=== PATIENT | female | born 1940 | race Caucasian/White ===

== ENCOUNTER 2020-03-13 10:58 | Outpatient (CLI) | payer OTHER, SELFPAY ==
--- NOTE | ~2020-03-13 | DEXA_ITS ---
Bone Density Report Name: Karis Soto Age: 79 Sex: Female Ethnicity: White Date of : 1940 Indication: osteopenia; height loss; cancer; Referring Provider: ARIANA MONROY Study: Bone densitometry was performed. Exam Date: March 13, 2020 Accession number: [id number] Bone Density: Region BMD T-score Z-score Classification AP Spine (L1, L3, L4) 0.899 -1.4 1.4 Osteopenia Femoral Neck (Left) 0.644 -1.8 0.5 Osteopenia Total Hip (Left) 0.763 -1.5 0.7 Osteopenia Total Hip Bilateral Avg 0.769 -1.5 0.8 Osteopenia Femoral Neck (Right) 0.677 -1.6 0.8 Osteopenia Total Hip (Right) 0.774 -1.4 0.8 Osteopenia World Health Organization criteria for BMD impression classify patients as: Normal (T-score at or above -1.0), Osteopenia (T-score between -1.0 and -2.5), or Osteoporosis (T-score at or below -2.5). 10-year Fracture Risk(1): Major Osteoporotic Fracture 15% Hip Fracture 4.3% Reported Risk Factors: [place] (), Neck BMD=0.644, BMI=24.3 (1) FRAX(R) Version 3.08. Fracture probability calculated for an untreated patient. Fracture probability may be lower if the patient has received treatment. Previous Exams: Region Exam Age BMD T-score BMD Change BMD Change Date g/cm2 vs Baseline vs Previous AP Spine(L1, L3, L4) 03/13/2020 79 0.899 -1.4 -0.048(-5.1%)* -0.048(-5.1%)* 09/14/2016 76 0.947 -1.0 Total Hip(Left) 03/13/2020 79 0.763 -1.5 -0.009(-1.1%) -0.009(-1.1%) 09/14/2016 76 0.772 -1.4 Total Hip(Right) 03/13/2020 79 0.774 -1.4 -0.037(-4.6%)* -0.037(-4.6%)* 09/14/2016 76 0.811 -1.1 *Denotes significance at 95% confidence level, LSC for AP Spine = 0.022 g/cm2, LSC for Total Hip = 0.027 g/cm2 Clinical Information Provided by Patient: Has the following medical conditions: Cancer Patient maximum height was 69 Menopause Age: 50 Onset of menses at age 13 Number of children 3 Impression: The patient has low bone mass, based on the Left Femoral Neck T-score. The patient has an estimated ten-year risk of hip fracture of 4.3% and an estimated ten-year risk of major fracture of 15%, based on the WHO FRAX algorithm. The BMD for the AP Spine(L1, L3, L4) decreased, changing by -5.1% since the last DXA exam. The BMD for the Total Hip(Right) decreased, changing by -4.6% since the last DXA exam. Discussion: BONE DENSITY IS LOW AT ONE OR MORE SKELETAL SITES. THE PATIENT'S BMD AND CLINICAL RISK FACTORS CONTRIBUTE TO THIS PATIE
== END 2020-03-13 10:59 | disposition home or self-care (01) ==
LOC: ANHIMG 11:02
PROVIDERS: PCP Internal Medicine; Visit Provider Internal Medicine
DX: M85.88 Other specified disorders of bone density and structure, other site (principal); M85.852 Other specified disorders of bone density and structure, left thigh; M85.851 Other specified disorders of bone density and structure, right thigh
CPT/HCPCS: 77080

== ENCOUNTER 2022-09-23 22:10 | Observation (INO) | payer OTHER, SELFPAY ==
[2022-09-23] VITALS (14 sets, daily range): BP systolic 126–172; BP diastolic 78–110; PULSE 70–190; RESP 14–27; O2SAT 94–99
--- NOTE | ~2022-09-23 | XR_ITS ---
EXAMINATION: XR chest 1V portable INDICATION: Supraventricular tachycardia TECHNIQUE: Portable AP chest at 1056 hours COMPARISON: None available FINDINGS: There is symmetric scarring of the lung apices. No pleural effusion or pneumothorax. Minima l airspace opacities are present at the left costophrenic angle. The heart size is normal for techniq ue. IMPRESSION: 1. Minimal left basilar airspace opacities, likely atelectasis versus epicardial fat pad. Reviewed, dictated and finalized at location A. NETWORK ENGINEER IMPRESSION: 1. Minimal left basilar airspace opacities, likely atelectasis versus epicardia l fat pad.
--- NOTE | 2022-09-23 22:11 | ECG_ITS ---
Measurements Intervals [place] Rate: 112 P: MO: 0 QRS: -32 QRSD: 83 T: 58 QT: 319 QTc: 437 Interpretive Statements ATRIAL FLUTTER/FIBRILLATION WITH RAPID VENTRICULAR RESPONSE MARKED LEFT AXIS DEVIATION [QRS AXIS < -30] POSSIBLE RIGHT VENTRICULAR CONDUCTION DELAY [RSR (QR) IN V1/V2] ST DEPRESSION, CONSIDER INFEROLATERAL ISCHEMIA ABNORMAL ECG NO PREVIOUS ECG AVAILABLE FOR COMPARISON Electronically Signed On 09-24-2022 11:30:43 PHOTO MASK CLEANER by Frank Graves M.D.
[2022-09-23] MEDS: ADENOSINE IV SOLN 6 MG/2 ML VIAL IV PUSH (22:34)
[2022-09-23] MEDS: METOPROLOL TARTRATE INJ 5 MG/5 ML VIAL IV PUSH (22:35)
--- NOTE | 2022-09-23 22:36 | ECG_ITS ---
Measurements Intervals [place] Rate: 173 P: MS: 0 QRS: -36 QRSD: 194 T: 0 QT: 260 QTc: 442 Interpretive Statements SUPRAVENTRICULAR TACHYCARDIA DIFFUSE ST-T ABNORMALITY CONSIDER SUB ENDOMYOCARDIAL ISCHEMIA INTRAVENTRICULAR CONDUCTION DELAY ABNORMAL ECG COMPARED TO ECG 09/23/2022 22:17:44 INTRAVENTRICULAR CONDUCTION DELAY NOW PRESENT Electronically Signed On 09-25-2022 16:12:05 MANAGER BABY by Eliud Jackson M.D.
--- NOTE | 2022-09-23 22:37 | ECG_ITS ---
Measurements Intervals [place] Rate: 112 P: 114 MS: 161 QRS: -25 QRSD: 84 T: 62 QT: 308 QTc: 422 Interpretive Statements SINUS TACHYCARDIA POSSIBLE RIGHT VENTRICULAR CONDUCTION DELAY VOLTAGE CRITERIA FOR LVH ST DEPRESSION, CONSIDER SUBENDOCARDIAL INJURY ABNORMAL ECG COMPARED TO ECG 09/23/2022 22:36:31 SINUS TACHYCARDIA HAS REPLACED SUPRAVENTRICULAR TACHYCARDIA Electronically Signed On 09-25-2022 16:12:58 [employer] TECHNICAL MANAGER by Eliud Jackson M.D.
[2022-09-23] MEDS: SODIUM CHLORIDE 0.9% IV 1,000 ML 999 ML IV CONT (22:39)
--- NOTE | 2022-09-23 22:55 | ECG_ITS ---
Measurements Intervals [place] Rate: 89 P: ND: 0 QRS: -29 QRSD: 86 T: 41 QT: 368 QTc: 449 Interpretive Statements PROBABLE ATRIAL FLUTTER BORDERLINE LEFT AXIS DEVIATION [QRS AXIS < -20] POSSIBLE RIGHT VENTRICULAR CONDUCTION DELAY [RSR (QR) IN V1/V2] ABNORMAL RHYTHM ECG COMPARED TO ECG 09/23/2022 22:17:44 NO SIGNIFICANT CHANGES Electronically Signed On 09-24-2022 11:31:17 OLD COIN DEALER by Frank Graves M.D.
--- NOTE | 2022-09-23 22:56 | ED.GENADULT ---
HPI - General Adult General Chief complaint: Arrhythmia/Palpitations Stated complaint: tachycardia Time Seen by Provider: 09/23/22 22:20 History of Present Illness HPI narrative: 82-year-old female with history of SVT presenting to the emergency department for evaluation of increased episodes of rapid heart rate and heart palpitations. Patient states prior to arrival that she was having some chest discomfort which she described as an indigestion type feeling. Patient denies any prior history of coronary artery disease. Due to these increased symptoms patient was scheduled to have follow-up with Dr. Sierra patient states tonight she was having some lightheaded and dizziness with the episodes of heart palpitation. Patient does have a prior history of syncope, DJD hypertension. Related Data Home Medications Medication Instructions Recorded Confirmed lisinopril 20 mg tablet 20 mg PO DAILY 09/24/22 09/24/22 Allergies Allergy/AdvReac Type Severity Reaction Status Date / Time No Known Allergies Allergy Verified 03/23/20 13:54 Review of Systems Review of Systems: CONSTITUTIONAL: Denies fever, chills, or sweats. EYES: Denies visual changes, redness, or discharge. ENT: Denies rhinorrhea, congestion, sore throat, or otalgia. CARDIOVASCULAR: See HPI RESPIRATORY: Denies cough or dyspnea. GASTROINTESTINAL: Denies abdominal pain, nausea, vomiting, or diarrhea. GENITOURINARY: Denies dysuria or hematuria. SKIN: Denies rash or itching. MUSCULOSKELETAL: Denies back pain, joint pain, or myalgia. NEUROLOGIC: Denies headache, numbness, or weakness. P [facility] Family History Family History (Updated 09/24/22 @ 02:02 by Meera Cheatham RN) Father Enlarged heart Sibling Alcoholism Social History Social History Smoking status: Never smoker Second hand tobacco smoke exposure: Yes Alcohol intake: current Drinks per week: 1 Substance use: never Other substance usage details: Drinks maybe 2 glasses of wine a month Lack of Transportation: No Lack of Food: Never True Current Housing: I Have Housing Concerned About Future Housing: No Difficulty Paying Gas/Electric Bills: No Difficulty Paying for Meds: No Currently Unemployed: No Education: Decline to Answer Difficulty w/ Childcare or Family Care: No Spiritual care concerns: No Exam Narrative: APPEARANCE: Uncomfortable appearing with the rapid heart rate well-appearing 1 return to normal sinus rhythm HEAD: normocephalic, atraumatic. EYES: PERRLA/EOMI, conjunctivae clear. NOSE: Normal no drainage NECK: Supple. No adenopathy, no masses. RESPIRATORY: Airway patent, respirations nonlabored. Clear to auscultation bilaterally, no rales, rhonchi, wheezing. CARDIOVASCULAR: Tachycardia ABDOMINAL: Soft, nontender, nondistended, normal bowel sounds MUSCULOSKELETAL: Moves all extremities. Strength/ROM intact, No edema, No calf tenderness. NEURO: Alert. Cranial nerves II through XII intact. SKIN: Warm, dry. Normal Color Course Course Emergency Course: Upon arrival to the emergency department patient's initial EKG did show evidence of atrial fibrillation. On initial evaluation patient had converted to SVT with a heart rate in the 180s. Attempted modified Valsalva x2 and patient was not able to convert back to normal sinus rhythm. Patient was converted using 6 mg of IV Adenocard and patient's heart rate went from 180 down to 115 for a few minutes and then she returned back to the SVT with a heart rate of 170s. Patient was treated with 5 mg of IV Adenocard and patient's heart rate did convert back to a sinus tachycardia and then back to normal sinus rhythm. With the conversion back to normal sinus rhythm patient states that she has no chest pain no chest pressure and no symptoms of indigestion. Patient denies any complaints once her heart rate returned to a rate of 80. With the significant ST changes that were present on her EKG of the heart rate in the 180s and t
[2022-09-23] MEDS: METOPROLOL TARTRATE 25 MG TABLET PO (23:00)
[2022-09-23 23:01] LABS: Basophils Absolute Auto 0.1 K/mm3 (0.0-0.1); Basophils Percent Auto 0.6 % (0.2-1.2); Eosinophils Absolute Auto 0.1 K/mm3 (0-0.3); Eosinophils Percent Auto 0.7 % (0-4.4); Hematocrit 44.4 % (37.0-47.0); Hemoglobin 15.1 g/dL (12.0-15.0); Immature Granulocyte Absolute 0.04 K/mm3 (0.00-0.031); Immature Granulocyte Percent A 0.4 % (0-0.5); Lymphocytes Absolute Auto 1.88 K/mm3 (0.9-3.2); Lymphocytes Percent Auto 18.3 % (18.3-44.2); Mean Corpuscular Hemoglobin 31.2 pg (26-34); Mean Corpuscular Volume 91.7 fl (80-100); Mean Platelet Volume 11.4 fl (7.4-10.4); Monocytes Absolute Auto 1.1 K/mm3 (0.1-0.6); Neutrophils Absolute Auto 7.1 K/mm3 (1.3-6.7); Platelet Count Result 259 k/mm3 (150-375); Red Blood Count 4.84 M/mm3 (4.2-5.4); Red Cell Distribution Width 12.4 % (11.5-14.5); White Blood Count 10.3 K/mm3 (4.5-10.0)
[2022-09-23 23:14] LABS: Prothrombin Time 12.9 Seconds (11.1-14.7)
[2022-09-23 23:15] LABS: Partial Thromboplastin Time 37.3 SECONDS (22.3-36.8)
[2022-09-23 23:23] LABS: Alanine Aminotransferase 26 U/L (6-35); Albumin Level 4.1 g/dL (3.5-5.1); Alkaline Phosphatase 132 U/L (38-126); Anion Gap 11 mmol/L (8-16); Aspartate Amino Transferase 34 U/L (14-36); Bilirubin,Total 0.9 mg/dL (0.2-1.3); Blood Urea Nitrogen 14 mg/dL (7-17); Calcium 9.2 mg/dL (8.4-10.2); Carbon Dioxide 23 mmol/L (22-30); Chloride 107 mmol/L (98-107); Estimated CRCL calculation 54 ml/min; Estimated Glomerular Filt Rate > 60; Glucose 173 mg/dL (65-110); Potassium 2.9 mmol/L (3.4-5.0); Sodium 141 mmol/L (137-145)
[2022-09-23 23:34] LABS: NT Pro B Type Natriuretic Pept 1660 pg/mL (19.9-100); Troponin I 0.024 ng/mL (0.000-0.034)
[2022-09-23 23:35] LABS: Influenza A QL RT-PCR Negative (Negative); Influenza B QL RT-PCR Negative (Negative); SARS-CoV-2 RNA PCR Negative
[2022-09-24] VITALS (24 sets, daily range): BP systolic 122–171; BP diastolic 58–122; PULSE 52–90; RESP 14–29; TEMP 36.1–36.7; O2SAT 95–100; BMI 25.4
[2022-09-24] MEDS: KCL 20 MEQ/SW 100 ML 100 ML 50 MEQ IVPB (00:13)
[2022-09-24] MEDS: POTASSIUM CHLORIDE 20 MEQ PACKET (FOR LIQUID) 40 MEQ PO (00:13)
[2022-09-24] MEDS: SODIUM CHLORIDE 0.9% IV 250 ML 999 ML (00:54)
[2022-09-24] MEDS: ONDANSETRON INJ 4 MG/2 ML VIAL IV PUSH (01:01)
--- NOTE | 2022-09-24 01:28 | PC.NURSE ---
This patient, Karis Soto, was admitted to IMU Room 203-01 at 0124. Patient/family oriented to hospital policies and general routines including ID bracelet, bed and alarms, visiting hours, pain management, procedures, bathroom and other care routines, personal items, smoking policy, room service/diet, and visiting hours. Information on how to activate the Rapid Response Team has been discussed. Patient/Family are encouraged to report perceived risks to care and to ask questions if they do not understand what they are told or what they should do.
[2022-09-24 05:12] LABS: Troponin I 0.064 ng/mL (0.000-0.034)
[2022-09-24 09:27] LABS: Appearance Urine Slightly Cloudy (Clear); Bilirubin Urine Negative (Negative); Blood Urine Negative (Negative); Color Urine Yellow (Yellow); Glucose Urine UA Negative (Negative); Ketones Urine Trace mg/dL (Negative); Leukocyte Esterase Ur 1+ LEU/UL (Negative); Nitrate Urine Negative (Negative); Protein Urine Negative (Negative); Specific Grav Ur 1.025 (1.001-1.035); pH Urine 5.5 (5.0-9.0)
[2022-09-24 09:32] LABS: Bacteria Urine Trace /hpf; Hyaline Casts Urine 20-29 /lpf; Mucus Urine Heavy /lpf; Squamous Epithelial Cell Urine Many /hpf (Few)
--- NOTE | 2022-09-24 09:36 | PM.IMHP ---
H&P: HPI History of Present Illness Date/Time: 09/23/22 23:50 Chief Complaint: Palpitations Narrative: 82-year-old female with a past medical history of SVT, essential hypertension and osteopenia who presented to the ER with palpitations and indigestion. This was also accompanied by some dizziness and lightheadedness. She had evidently been having increased symptoms similar to this in the past. The patient had a compliance monitor placed in 2018 that was initially interpreted as having some paroxysmal AFib. However after further evaluation or repeat evaluation by another provider who was evidently felt that these episodes were not AFib in were more SVT. At 1 point the patient was on anticoagulation with Eliquis and had prescriptions for metoprolol and Cardizem. But this was back in 2019. She states that recently her blood pressure medicine that started within a letter M was discontinued by her primary care physician and she was switched to lisinopril. She was started on 10 mg of lisinopril daily but it was increased to 20 mg within the last week or 2. Patient had prior echocardiogram in December of 2018 that demonstrated normal ejection fraction of 65-70% and grade 1 diastolic dysfunction. She denies any lower extremity swelling orthopnea or dyspnea on exertion. Patient initially when the patient arrived to the ER it was thought that she may be in AFib. However instead the patient was in SVT with heart rate of 180. Modified Valsalva maneuver was attempted x2 but failed the patient was converted using 6 mg of IV adenosine and her heart rate went down to 115. She returned back into SVT with heart rate of 170s and gave 1 dose of IV metoprolol. And she converted back to sinus rhythm. With conversion back to sinus rhythm the patient no longer had any complaints of chest pain. Her rate was 80. The patient did have ST changes when her heart rate was elevated but these changes resolved when patient's rhythm converted. Her initial troponin was negative but did become elevated likely due to demand ischemia from tachyarrhythmia. The patient did receive 1 dose of p.o. metoprolol 25 mg in the ER. Cardiology did not recommend heparin drip in LEs patient had significant elevation in her troponin above 0.5. The patient's troponin peaked at 0.7 it is already trending down with her 3rd set. Source of information is patient and her daughter was at bedside. The patient provided permission for me discuss her case with her daughter. I discussed the patient's case was discussed with ER admission and Cardiology the following morning. Review of Systems Review of Systems: 12 systems were reviewed with pertinent positives and negatives per HPI. Except as documented in the HPI, all other systems were reviewed and are negative. [facility] Past Medical History Medical History (Updated 09/24/22 @ 10:03 by Cary Campa DO) Cancer of right breast Treated with localized resection and radiation therapy Hypovitaminosis D Osteopenia Surgical History Surgical History (Updated 09/24/22 @ 09:56 by Cary Campa DO) History of lumpectomy of right breast (2009) Family History Family History Father Enlarged heart Sibling Alcoholism Social History Social History (Updated 09/24/22 @ 10:00 by Cary Campa DO) Social History: She has been since 2007. She raised 3 children. Her middle child is at bedside. 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 Code status: Patient states that she would want to be cardioverted if she was in a unstable cardiac arrhythmia but would not want her heart to be restarted if she actually went into cardiac arrest. She would not want to be intubated or placed on a ventilator. She states that her was on a ventilator for 4 weeks prior to his and she would not want to experience that. Smoking status: Former smoker Second hand tobacco
[2022-09-24 10:03] LABS: Add Urine Microscopic? YES
--- NOTE | 2022-09-24 10:10 | PM.CNCAR ---
Assessment and Plan Assessment and plan (1) Narrow complex tachycardia: Code(s): I47.1 - Supraventricular tachycardia Status: Acute Assessment and Plan: This appears to be and atypical atrial flutter. Cannot completely exclude an atrial tachycardia. She does have a history of atrial flutter however and most likely scenario is that the recent stopping of her metoprolol has resulted in increased episodes of arrhythmia. Will resume lower dose metoprolol at 25 mg p.o. b.i.d.. Continue lisinopril because of blood pressure is high. Will check a 2D echocardiogram with Doppler. Will give a dose of enoxaparin 1 milligram/kilogram subQ x1 now. She does have a chads Vasc score of 4. Anticoagulation is recommended. She was briefly on Eliquis in the remote past. (2) Essential hypertension: Code(s): I10 - Essential (primary) hypertension Status: Acute Assessment and Plan: Elevated. Add metoprolol to lisinopril as detailed above (3) Acute hypokalemia: Code(s): E87.6 - Hypokalemia Status: Acute Assessment and Plan: Potassium is quite low. KCL Forty mEq p.o. x1 (4) Syncope: Code(s): R55 - Syncope and collapse Status: Acute Assessment and Plan: Workup in the past by Dr. Gooden was negative (5) Elevated troponin: Code(s): R77.8 - Other specified abnormalities of plasma proteins Status: Acute Assessment and Plan: Likely related to the tachycardia. Will continue to trend troponins and repeat a troponin now. Also check an EKG in a.m. History of Present Illness History of Present Illness Consult date/time: 09/24/22 10:10 Requesting physician: Thiago Bell MD Consult reason: Other (SVT) Reason For Visit: SVT Narrative: Date of service 09/24/2022 Requesting provider: Dr. Bell Reason for consultation: SVT History patient is an 82-year-old female who has a history of atrial flutter. She had seen Dr. Gooden in the remote past and was scheduled to see Dr. Sierra soon. She was recently taken off metoprolol for side effects reasons including lethargy. Since being taken off of metoprolol she has had increased episodes of palpitations. Yesterday she had an episode that lasted for about 20 minutes in which her heartbeat was strong and fast. She was a little lightheaded with it as well. She did not pass out. Because of the ongoing symptoms and more frequent symptoms over the past 3 weeks or so and since yesterday's symptoms were more prolonged she decided come to the hospital for further workup and evaluation. She was found to be and what was thought to be SVT. In my opinion it is in atypical atrial flutter. Regardless she was given metoprolol and her symptoms did improve and her heart rate slowed. Troponins have turned slightly positive. She denies any chest pain. She has no syncope, paroxysmal nocturnal dyspnea, orthopnea, edema, orthopnea. Review of Systems Review of Systems: All systems reviewed & are unremarkable except as noted in HPI and below Constitutional: Constitutional: Denies chills Eyes: Eyes: Denies blurry vision ENT: Reports Normal hearing present Cardiovascular: Cardiovascular: Denies chest pain and Reports palpitations Respiratory: Respiratory: Denies chest congestion and Denies cough Gastrointestinal: Gastrointestinal: Denies abdominal pain Genitourinary: Genitourinary: Denies hematuria Musculoskeletal: Musculoskeletal: Denies back pain Integumentary/Breasts: Skin/Breast: Denies erythema Neurologic: Denies Abnormal speech present Psychiatric: Psychiatric: Denies anxiety Endocrine: Endocrine: Denies excessive sweating Hematologic/Lymphatic: Hematologic/Lymphatic: Denies easy bleeding Allergic/Immunologic: Allergic/Immunologic: Denies lip swelling PMFSH Past Medical History Medical History Cancer of right breast Treated with localized
[2022-09-24 10:54] LABS: Anion Gap 3 mmol/L (8-16); Blood Urea Nitrogen 13 mg/dL (7-17); Calcium 8.6 mg/dL (8.4-10.2); Carbon Dioxide 27 mmol/L (22-30); Chloride 107 mmol/L (98-107); Estimated CRCL calculation 62 ml/min; Estimated Glomerular Filt Rate > 60; Glucose 88 mg/dL (65-110); Magnesium 1.9 mg/dL (1.6-2.3); Potassium 4.1 mmol/L (3.4-5.0); Sodium 137 mmol/L (137-145)
[2022-09-24 11:03] LABS: Troponin I 0.028 ng/mL (0.000-0.034)
[2022-09-24] MEDS: ENOXAPARIN 80 MG/0.8 ML SYRINGE SUB-Q (11:58)
--- NOTE | 2022-09-24 12:14 | ECG_ITS ---
Measurements Intervals [place] Rate: 60 P: 58 [place]: 239 QRS: -21 QRSD: 84 T: 46 QT: 441 QTc: 441 Interpretive Statements SINUS RHYTHM WITH FIRST DEGREE AV BLOCK BORDERLINE LEFT AXIS DEVIATION [QRS AXIS < -20] POSSIBLE RIGHT VENTRICULAR CONDUCTION DELAY [RSR (QR) IN V1/V2] COMPARED TO ECG 09/23/2022 23:04:02 SINUS RHYTHM HAS BEEN RESTORED Electronically Signed On 09-25-2022 11:50:37 TYPE PHOTOGRAPHY SUPERVISOR by Rizwan Young M.D.
--- NOTE | 2022-09-24 16:26 | PM.IMPN ---
Progress Note: A&P Assessment and Plan (1) Paroxysmal SVT (supraventricular tachycardia): Code(s): I47.1 - Supraventricular tachycardia Status: Acute (2) Essential hypertension: Code(s): I10 - Essential (primary) hypertension Status: Acute (3) Acute hypokalemia: Code(s): E87.6 - Hypokalemia Status: Acute Plan SVT s/p adenosine Continue metoprolol ECHO pending Cardiology History of Paroxysmal Afib Anticoagulation per cardiology cardiology on board Hypokalemia K 2.9, replaced Serum magnesium monitor Elevated troponin Likely from tachycardia normal now HTN Continue Lisinopril and metoprolol DVT prophylaxis on Sq [place] full dose Subjective Date/time seen: 09/24/22 16:26 Patient presented to the ER on account of lightheadedness with palpitations, has a history of Afib. Noted to be in SVT extinguished with Adenosine. ECHO pending, Cardiology following. Review of Systems Review of Systems: All systems reviewed & are unremarkable except as noted in HPI and below Exam Narrative: General: Alert and oriented, in no acute distress HEAD: normocephalic, atraumatic. EYES: PERRLA/EOMI, conjunctivae clear. NOSE: Normal no drainage NECK: Supple. No adenopathy, no masses. RESPIRATORY: Airway patent, respirations nonlabored. Clear to auscultation bilaterally, no rales, rhonchi, wheezing. CARDIOVASCULAR: Tachycardia ABDOMINAL: Soft, nontender, nondistended, normal bowel sounds MUSCULOSKELETAL: Moves all extremities. Strength/ROM intact, No edema, No calf tenderness. NEURO: Alert. Cranial nerves II through XII intact. SKIN: Warm, dry. Normal Color Const: Other: No acute distress, well-developed well-nourished, appears younger than stated age HENMT: Other: Mucous membranes are moist, no oral pharyngeal erythema, head is normocephalic atraumatic Eyes: Other: Pupils are equal and reactive, no scleral icterus, no conjunctival pallor Neck: Other: No JVD, no lymphadenopathy, trachea midline Resp: Other: Clear to auscultation bilaterally, no increased work of breathing Cardio: Other: Regular rate, regular rhythm, 2+ bilateral radial pedal pulses GI: Other: Soft, nontender, nondistended, positive bowel sounds Back/Spine/Pelvis: Other: Mild kyphosis thoracic spine Skin: Other: Mild pallor, non jaundice Neuro: Other: Alert oriented, speech is clear, no facial asymmetry, no localizing neurologic deficits noted on limited exam Extrem: Other: Chronic deformity of the right index finger with abnormal nail bed and thickened tissue due to an injury with a vacuum distributor cleaner over 40 years ago., no clubbing cyanosis or edema Psych: Other: Appropriate mood and affect, pleasant and cooperative, judgment and insight intact Objective Data Vital Signs Vital Signs: Vital Signs - 24 hr 09/23/22 22:19 09/23/22 22:23 09/23/22 22:35 Temperature Pulse Rate 111 H 190 H 178 H Respiratory Rate 16 21 H Blood Pressure 172/89 H 172/89 H Pulse Oximetry 99 98 Oxygen Delivery Room Air 09/23/22 22:40 09/23/22 22:41 09/23/22 23:00 Temperature Pulse Rate 105 H 106 H 83 Respiratory Rate 17 Blood Pressure 133/110 H Pulse Oximetry 98 Oxygen Delivery 09/23/22 22:41 09/23/22 22:51 09/23/22 23:01 Temperature Pulse Rate 109 H 88 86 Respiratory Rate 14 18 22 H Blood Pressure 133/100 H 145/79 H 150/89 H Pulse Oximetry 98 98 94 Oxygen Delivery 09/23/22 23:11 09/23/22 23:21 09/23/22 23:59 Temperature Pulse Rate 79 77 70 Respiratory Rate 16 17 Blood Pressure 139/84 142/86 H Pulse Oximetry 94 95 Oxygen Delivery 09/23/22 23:31 09/23/22 23:41 09/23/22 23:51 Temperature Pulse Rate 78 81 82 Respiratory Rate 18 17 27 H Blood Pressure 140/78 152/87 H 126/88 Pulse Oximetry 97 96 96 Oxygen Delivery 09/24/22 00:01 09/24/22 00:11 09/24/22 00:21 Temperature Pulse Rate 77 78 80 Resp
[2022-09-24] MEDS: METOPROLOL TARTRATE 25 MG TABLET PO (20:01)
[2022-09-25] VITALS (18 sets, daily range): BP systolic 142–156; BP diastolic 60–81; PULSE 49–159; RESP 14–18; TEMP 36–36.9; O2SAT 96–99
--- NOTE | 2022-09-25 | ECHO_ITS ---
Patient Info Name: Karis Soto Age: 82 years : 1940 Gender: Female Ht: 69 in Wt: 181 lbs BSA: 2.01 m2 BP: 145 / 60 mmHg Heart Rhythm: Sinus Rhythm Exam Date: 09/25/2022 9:15 AM Exam Location: [facility] Patient Status: Inpatient Admit Date: 09/23/2022 Staff Ordering Physician: Thiago Bell MD Aerotriangulation Specialist: Edgar Roberts, RITA, RT Attending Provider: Cary Campa DO Referring Physician: Ray BHAGAT; Exam Type: CA echo doppler color flow Study Info Indications I50.9 - Heart failure, unspecified - SVT with ST changes Complete two-dimensional, color flow and Doppler transthoracic echocardiogram is performed. Summary 1. Complete two-dimensional, color flow and Doppler transthoracic echocardiogram is performed. 2. Left ventricular chamber dimension is normal. 3. Left ventricular systolic function is hyperdynamic, estimated at >70%. 4. There is mildly increased left ventricular wall thickness. 5. The left ventricular diastolic function is grade II diastolic dysfunction. 6. There is trace mitral valve regurgitation. 7. There is mild tricuspid valve regurgitation. 8. Moderate pulmonary hypertension, estimated pulmonary arterial systolic pressure is 51 mmHg. Left Ventricle Left ventricular chamber dimension is normal. Left ventricular systolic function is hyperdynamic, estimated at >70%. There is mildly increased left ventricular wall thickness. The left ventricular diastolic function is grade II diastolic dysfunction. Right Ventricle Right ventricular chamber dimension is normal. Right ventricular systolic function is normal. Left Atria Left atrial chamber dimension is normal. Right Atria Right atrial chamber dimension is mildly enlarged. Aortic Valve The aortic valve is trileaflet. There is mild aortic valve sclerosis. There is no aortic valve stenosis. There is trace aortic valve regurgitation. Pulmonic Valve The pulmonic valve is not well visualized. There is mild pulmonic regurgitation. Mitral Valve The mitral valve has normal leaflets. There is trace mitral valve regurgitation. The mitral valve annulus is mildly calcified. Tricuspid Valve The tricuspid valve leaflets are normal. There is mild tricuspid valve regurgitation. Moderate pulmonary hypertension, estimated pulmonary arterial systolic pressure is 51 mmHg. Pericardium/Pleural The pericardium appears normal. There is trivial pericardial effusion. Inferior Vena Cava Normal inferior vena cava with >50% collapse upon inspiration consistent with normal right atrial pressure, 5 mmHg. Aorta The aortic root size at the sinus of Valsalva is normal. There is mild aortic atherosclerosis. Left Ventricular Outflow Tract Name Value Normal LVOT 2D LVOT Diameter 2.0 cm LVOT Doppler LVOT Peak Gradient 6 mmHg LVOT Mean Gradient 4 mmHg LVOT VTI 26 cm LVOT VTI/AV VTI Ratio 0.7 LVOT Stroke Volume 85 ml Mitral Valve
[2022-09-25 04:56] LABS: Basophils Absolute Auto 0.1 K/mm3 (0.0-0.1); Basophils Percent Auto 0.7 % (0.2-1.2); Eosinophils Absolute Auto 0.2 K/mm3 (0-0.3); Eosinophils Percent Auto 3.1 % (0-4.4); Hematocrit 38.4 % (37.0-47.0); Hemoglobin 12.8 g/dL (12.0-15.0); Immature Granulocyte Absolute 0.02 K/mm3 (0.00-0.031); Immature Granulocyte Percent A 0.3 % (0-0.5); Lymphocytes Absolute Auto 2.19 K/mm3 (0.9-3.2); Lymphocytes Percent Auto 32.8 % (18.3-44.2); Mean Corpuscular HGB Conc 33.3 g/dl (32-36); Mean Corpuscular Hemoglobin 30.9 pg (26-34); Mean Corpuscular Volume 92.8 fl (80-100); Monocytes Absolute Auto 0.8 K/mm3 (0.1-0.6); Monocytes Percent Auto 11.2 % (2.6-8.5); Neutrophils Absolute Auto 3.5 K/mm3 (1.3-6.7); Neutrophils Percent Auto 51.9 % (45.5-73.1); Platelet Count Result 220 k/mm3 (150-375); Red Blood Count 4.14 M/mm3 (4.2-5.4); Red Cell Distribution Width 12.3 % (11.5-14.5); White Blood Count 6.7 K/mm3 (4.5-10.0)
[2022-09-25 05:08] LABS: Alanine Aminotransferase 19 U/L (6-35); Albumin Level 3.2 g/dL (3.5-5.1); Alkaline Phosphatase 86 U/L (38-126); Anion Gap 3 mmol/L (8-16); Aspartate Amino Transferase 24 U/L (14-36); Bilirubin,Total 0.7 mg/dL (0.2-1.3); Blood Urea Nitrogen 12 mg/dL (7-17); Calcium 8.2 mg/dL (8.4-10.2); Carbon Dioxide 27 mmol/L (22-30); Chloride 109 mmol/L (98-107); Estimated CRCL calculation 54 ml/min; Estimated Glomerular Filt Rate > 60; Glucose 83 mg/dL (65-110); Magnesium 1.9 mg/dL (1.6-2.3); Potassium 3.9 mmol/L (3.4-5.0); Sodium 139 mmol/L (137-145)
[2022-09-25] MEDS: lisinopriL 20 MG TABLET PO (08:38)
[2022-09-25] MEDS: METOPROLOL TARTRATE 25 MG TABLET PO ×2 (08:38→20:21)
--- NOTE | 2022-09-25 10:52 | PM.PNCARD ---
Progress Note: A&P Assessment and Plan (1) Narrow complex tachycardia: Code(s): I47.1 - Supraventricular tachycardia Status: Acute Assessment and Plan: Atypical atrial flutter vs. atrial tachycardia. She does have a history of atrial flutter however and most likely scenario is that the recent stopping of her metoprolol has resulted in increased episodes of arrhythmia. Continue metoprolol 25mg b.i.d. She does have a chads Vasc score of 4. Anticoagulation is recommended. She was briefly on Eliquis in the remote past. Will order 30 day tele monitor on discharge (2) Essential hypertension: Code(s): I10 - Essential (primary) hypertension Status: Acute Assessment and Plan: Elevated. Add metoprolol to lisinopril as detailed above (3) Acute hypokalemia: Code(s): E87.6 - Hypokalemia Status: Acute Assessment and Plan: Replaced. (4) Syncope: Code(s): R55 - Syncope and collapse Status: Acute Assessment and Plan: Workup in the past by Dr. Gooden was negative (5) Elevated troponin: Code(s): R77.8 - Other specified abnormalities of plasma proteins Status: Acute Assessment and Plan: Likely related to the tachycardia. Troponin trended down Subjective Date/time seen: 09/25/22 10:52 Follow up visit for atrial flutter Feeling well this morning. No further palpitations. In sinus rhythm/sinus bradycardia on telemetry review. Review of Systems Review of Systems: All systems reviewed & are unremarkable except as noted in HPI and below Constitutional: Constitutional: Denies chills and Denies excessive sweating Eyes: Eyes: Denies blurry vision ENT: Reports Normal hearing present and Denies lip swelling Cardiovascular: Cardiovascular: Denies chest pain and Reports palpitations Respiratory: Respiratory: Denies chest congestion and Denies cough Gastrointestinal: Gastrointestinal: Denies abdominal pain Genitourinary: Genitourinary: Denies hematuria Musculoskeletal: Musculoskeletal: Denies back pain Integumentary/Breasts: Skin/Breast: Denies erythema Neurologic: Reports Normal hearing present and Denies Abnormal speech present Psychiatric: Psychiatric: Denies anxiety Endocrine: Endocrine: Denies excessive sweating and Reports palpitations Hematologic/Lymphatic: Hematologic/Lymphatic: Denies easy bleeding Allergic/Immunologic: Allergic/Immunologic: Denies lip swelling Exam Narrative: Alert oriented appears stated age Const: General: comfortable and no acute distress HENMT: Face/Nose/Sinus: Normal nares present Eyes: General: appearance normal, both eyes and all related structures Sclera: sclerae normal Neck: Neck: supple Thyroid: abnormal thyroid Chest: Other: No reproducible chest wall pain to palpation Resp: Effort & Inspection: normal respiratory effort Auscultation: clear to auscultation bilaterally Cardio: Rate: regular rate Rhythm: regular rhythm Heart sounds: no murmurs GI: Inspection: non-distended Auscultation: normal bowel sounds Skin: General skin exam: normal color Neuro: Cranial nerves: Yes Normal hearing present Speech: normal speech and No Abnormal speech present Sensory Exam: normal sensation Extrem: General: normal to inspection Psych: Mental Status: mental status grossly normal Affect: normal affect Objective Data Vital Signs Vital Signs: Vital Signs - 24 hr 09/24/22 12:00 09/24/22 12:00 09/24/22 12:00 Temperature 36.1 C L Pulse Rate 76 68 Respiratory Rate 20 Blood Pressure 150/77 H Pulse Oximetry 97 Oxygen Delivery Room Air 09/24/22 14:00 09/24/22 16:00 09/24/22 16:00 Temperature 36.4 C Pulse Rate 70 90 60 Respiratory Rate 20 Blood Pressure 142/79 H Pulse Oximetry 98 Oxygen Delivery 09/24/22 18:00 09/24/22 16:00 09/24/22 20:01 Temperature Pulse Rate 72 68 Respiratory Rate Blood Pressure Pulse Oximetry Ox
--- NOTE | 2022-09-25 11:26 | PCCARD ---
PATIENT REFUSED EKG ORDERED BY DR. DURÁN 09/25/22. SHE THINKS SHE IS GOING HOME AND DOES NOT NEED ANOTHER EKG.
--- NOTE | 2022-09-25 12:53 | ECG_ITS ---
Measurements Intervals [place] Rate: 153 P: ID: 0 QRS: -47 QRSD: 113 T: 29 QT: 268 QTc: 429 Interpretive Statements SUPRAVENTRICULAR TACHYCARDIA INCOMPLETE RIGHT BUNDLE BRANCH BLOCK [90+ ms QRS DURATION, TERMINAL R IN V1/V2, 40+ ms S IN I/aVL/V4/V5/V6] LEFT ANTERIOR FASCICULAR BLOCK [QRS AXIS <= -45, QR IN I, RS IN II] ST DEPRESSION, CONSIDER SUBENDOCARDIAL INJURY [0.1+ mV ST DEPRESSION] INTERPRETATION BASED ON A DEFAULT AGE OF 40 YEARS COMPARED TO ECG 09/24/2022 10:44:55 SUPRAVENTRICULAR TACHYCARDIA NOW PRESENT ST DEPRESSIONS NOW PRESENT Electronically Signed On 09-26-2022 14:45:16 TREATMENT COORDINATOR by Eri Haynes M.D.
[2022-09-25] MEDS: METOPROLOL TARTRATE INJ 5 MG/5 ML VIAL IV PUSH (13:02)
--- NOTE | 2022-09-25 14:53 | PM.IMPN ---
Progress Note: A&P Assessment and Plan (1) Paroxysmal SVT (supraventricular tachycardia): Code(s): I47.1 - Supraventricular tachycardia Status: Acute (2) Essential hypertension: Code(s): I10 - Essential (primary) hypertension Status: Acute (3) Acute hypokalemia: Code(s): E87.6 - Hypokalemia Status: Acute Plan SVT s/p adenosine Continue metoprolol ECHO completed Cardiology tele monitoring History of Paroxysmal Afib Anticoagulation per cardiology cardiology on board Hypokalemia potassium is 3.9 today Serum magnesium monitor Elevated troponin Likely from tachycardia normal now HTN Continue Lisinopril and metoprolol DVT prophylaxis on Sq Lovenox full dose Eliquis recommended Subjective Date/time seen: 09/25/22 14:53 82-year-old female with a past medical history of SVT, essential hypertension and osteopenia who presented to the ER with palpitations and indigestion Pt went back into svt no symptoms of chest or abdominal pains Pt back to heart 150s Cardiology want to keep pt overnite for further monitoring Review of Systems Review of Systems: No specific complaints All systems reviewed & are unremarkable except as noted in HPI and below Exam Narrative: General: Alert and oriented, in no acute distress HEAD: normocephalic, atraumatic. EYES: PERRLA/EOMI, conjunctivae clear. NOSE: Normal no drainage NECK: Supple. No adenopathy, no masses. RESPIRATORY: Airway patent, respirations nonlabored. Clear to auscultation bilaterally, no rales, rhonchi, wheezing. CARDIOVASCULAR: Tachycardia ABDOMINAL: Soft, nontender, nondistended, normal bowel sounds MUSCULOSKELETAL: Moves all extremities. Strength/ROM intact, No edema, No calf tenderness. NEURO: Alert. Cranial nerves II through XII intact. SKIN: Warm, dry. Normal Color Objective Data Vital Signs Vital Signs: Vital Signs - 24 hr 09/24/22 16:00 09/24/22 16:00 09/24/22 18:00 Temperature 36.4 C Pulse Rate 90 60 72 Respiratory Rate 20 Blood Pressure 142/79 H Pulse Oximetry 98 Oxygen Delivery 09/24/22 16:00 09/24/22 20:01 09/24/22 20:00 Temperature 36.3 C L Pulse Rate 68 64 Respiratory Rate 14 Blood Pressure 122/58 L Pulse Oximetry 100 Oxygen Delivery Room Air 09/24/22 20:00 09/24/22 20:00 09/24/22 22:00 Temperature Pulse Rate 60 53 L Respiratory Rate Blood Pressure Pulse Oximetry 100 Oxygen Delivery Room Air 09/24/22 23:33 09/25/22 00:00 09/25/22 00:00 Temperature 36.3 C L Pulse Rate 52 L 54 L Respiratory Rate 16 Blood Pressure 143/63 H Pulse Oximetry 98 98 Oxygen Delivery Room Air 09/25/22 02:00 09/25/22 04:00 09/25/22 04:00 Temperature Pulse Rate 56 L 51 L Respiratory Rate Blood Pressure Pulse Oximetry 97 Oxygen Delivery Room Air 09/25/22 04:00 09/25/22 06:00 09/25/22 08:00 Temperature 36.3 C L Pulse Rate 64 53 L 80 Respiratory Rate 14 Blood Pressure 145/60 H Pulse Oximetry 97 Oxygen Delivery 09/25/22 08:00 09/25/22 08:38 09/25/22 08:00 Temperature 36.9 C Pulse Rate 54 L 76 Respiratory Rate 18 Blood Pressure 142/61 H Pulse Oximetry 96 Oxygen Delivery Room Air 09/25/22 10:00 09/25/22 12:00 09/25/22 13:02 Temperature 36.0 C L Pulse Rate 49 L 58 L 159 H Respiratory Rate 18 Blood Pressure 150/77 H Pulse Oximetry 99 Oxygen Delivery 09/25/22 12:00 09/25/22 12:00 09/25/22 14:00 Temperature Pulse Rate 61 53 L Respiratory Rate Blood Pressure Pulse Oximetry Oxygen Delivery Room Air 09/25/22 08:37 Temperature 36.9 C Pulse Rate 54 L Respiratory Rate 18 Blood Pressure 142/61 H Pulse Oximetry 96 Oxygen Delivery Intake/Output Intake/Output: Intake & Output 09/22/22 09/23/22 09/24/22 09/25/22 23:59 23:59 23:59 23:59 Intake Total 880 580 Output Total 200 300 Balance 680 280 Meds/Results Medic
[2022-09-25] MEDS: APIXABAN 5 MG TABLET PO (20:21)
[2022-09-26] VITALS (9 sets, daily range): BP systolic 144–158; BP diastolic 52–84; PULSE 48–73; RESP 12–20; TEMP 36.1–36.6; O2SAT 95–98
[2022-09-26 07:17] LABS: Anion Gap 5 mmol/L (8-16); Blood Urea Nitrogen 10 mg/dL (7-17); Calcium 8.7 mg/dL (8.4-10.2); Carbon Dioxide 28 mmol/L (22-30); Chloride 103 mmol/L (98-107); Estimated CRCL calculation 48 ml/min; Estimated Glomerular Filt Rate > 60; Glucose 87 mg/dL (65-110); Magnesium 2.1 mg/dL (1.6-2.3); Potassium 3.7 mmol/L (3.4-5.0); Sodium 136 mmol/L (137-145)
--- NOTE | 2022-09-26 08:36 | PM.PNCARD ---
Progress Note: A&P Assessment and Plan (1) Narrow complex tachycardia: Code(s): I47.1 - Supraventricular tachycardia Status: Acute Assessment and Plan: Atypical atrial flutter vs. atrial tachycardia. She does have a history of atrial flutter however and most likely scenario is that the recent stopping of her metoprolol has resulted in increased episodes of arrhythmia. Continue metoprolol 25mg b.i.d. She does have a CHADS Vasc score of 4. Anticoagulation is recommended. She was briefly on Eliquis in the remote past. Will order 30 day tele monitor on discharge Echo showed hyperdynamic LVSF, EF >70, grade II diastolic dysfunction, mild TR, and moderate pHTN with PASP 51mmHg Add spironolactone for diastolic dysfunction and BP management OK for discharge today from a cardiac standpoint (2) Essential hypertension: Code(s): I10 - Essential (primary) hypertension Status: Acute Assessment and Plan: Elevated. Add metoprolol to lisinopril as detailed above (3) Acute hypokalemia: Code(s): E87.6 - Hypokalemia Status: Acute Assessment and Plan: WNL today (4) Syncope: Code(s): R55 - Syncope and collapse Status: Acute Assessment and Plan: Workup in the past by Dr. Gooden was negative (5) Elevated troponin: Code(s): R77.8 - Other specified abnormalities of plasma proteins Status: Acute Assessment and Plan: Likely related to the tachycardia. Repeat troponin downtrended Subjective Date/time seen: 09/26/22 08:36 Cardiology follow up for atrial flutter/atrial tachycardia Interval history: She had another episode of narrow complex tachycardia yesterday with a rate in the 150's, EKG obtained consistent with SVT, but cannot exclude atrial flutter. She was symptomatic with palpitations and some mild shortness of breath. Converted to sinus rhythm after one dose of IV metoprolol. No further episodes of tachycardia since yesterday afternoon Review of Systems Review of Systems: All systems reviewed & are unremarkable except as noted in HPI and below Constitutional: Constitutional: Denies chills and Denies excessive sweating Eyes: Eyes: Denies blurry vision ENT: Reports Normal hearing present and Denies lip swelling Cardiovascular: Cardiovascular: Denies chest pain and Reports palpitations Respiratory: Respiratory: Denies chest congestion and Denies cough Gastrointestinal: Gastrointestinal: Denies abdominal pain Genitourinary: Genitourinary: Denies hematuria Musculoskeletal: Musculoskeletal: Denies back pain Integumentary/Breasts: Skin/Breast: Denies erythema Neurologic: Reports Normal hearing present and Denies Abnormal speech present Psychiatric: Psychiatric: Denies anxiety Endocrine: Endocrine: Denies excessive sweating and Reports palpitations Hematologic/Lymphatic: Hematologic/Lymphatic: Denies easy bleeding Allergic/Immunologic: Allergic/Immunologic: Denies lip swelling Exam Narrative: Alert oriented appears stated age Const: General: comfortable and no acute distress HENMT: Face/Nose/Sinus: Normal nares present Eyes: General: appearance normal, both eyes and all related structures Sclera: sclerae normal Neck: Neck: supple Thyroid: abnormal thyroid Resp: Effort & Inspection: normal respiratory effort Auscultation: clear to auscultation bilaterally Cardio: Rate: regular rate Rhythm: regular rhythm Heart sounds: no murmurs GI: Inspection: non-distended Auscultation: normal bowel sounds Skin: General skin exam: normal color Neuro: Cranial nerves: Yes Normal hearing present Speech: normal speech and No Abnormal speech present Sensory Exam: normal sensation Extrem: General: normal to inspection Psych: Mental Status: mental status grossly normal Affect: normal affect Objective Data Vital Signs Vital Signs: Vital Signs - 24 hr 09/25/22 08:38 09/25/22 10:00 09/25/22 12:00 Temperatu
[2022-09-26] MEDS: METOPROLOL TARTRATE 25 MG TABLET PO (09:59)
[2022-09-26] MEDS: lisinopriL 20 MG TABLET PO (10:00)
[2022-09-26] MEDS: APIXABAN 5 MG TABLET PO (10:00)
--- NOTE | 2022-09-26 11:22 | PM.DS ---
DS: Admitting Diagnosis Discharge Date 09/26/2022 Admitting Diagnosis Paroxysmal SVT Hypokalemia DS: Discharge Diagnosis Discharge Diagnosis (1) Paroxysmal SVT (supraventricular tachycardia): Code(s): I47.1 - Supraventricular tachycardia Status: Acute (2) Acute hypokalemia: Code(s): E87.6 - Hypokalemia Status: Acute DS: Summary Hospital Course Reason for hospitalization: Paroxysmal SVT Hypokalemia Hospital Course: 82-year-old female with a past medical history of SVT, essential hypertension and osteopenia who presented to the ER with palpitations and indigestion. She was found to be in SVT.Modified Valsalva maneuver was attempted x2 but failed the patient was converted using 6 mg of IV adenosine and her heart rate went down to 115.? She returned back into SVT with heart rate of 170s and gave 1 dose of IV metoprolol.? And she converted back to sinus rhythm. Cardiology was consulted. Hypokalemia was corrected appropriately. Also h/o Afibb with CHADS Vasc score of 4, started on Eliquis. Plan for 30 day event monitor upon discharge. Outpatient follow up with cardiology. Discharged home in stable condition. Status at Discharge Functional status at discharge: independent ambulation Overall status at discharge: patient is back to baseline Time Spent with Patient Time attestation: Total time spent providing and/or coordinating discharge services: Time spent: Greater than 30 minutes Exam Const: General: comfortable HENMT: Mouth: Yes moist mucous membranes Eyes: General: appearance normal, both eyes and all related structures Sclera: sclerae normal Neck: Neck: supple Resp: Effort & Inspection: normal respiratory effort Auscultation: clear to auscultation bilaterally Cardio: Rate: regular rate Rhythm: regular rhythm GI: GI Palp: Yes Soft to palpation Auscultation: normal bowel sounds Skin: General skin exam: normal color Neuro: General: gait normal Extrem: General: normal to inspection Psych: Mental Status: mental status grossly normal DS: Data Data Completed and Pending Labs on day of discharge: Labs from last 24 hours 09/26/22 06:58 Sodium 136 L Potassium 3.7 Chloride 103 Carbon Dioxide 28 Anion Gap 5 L BUN 10 Creatinine 0.80 Estim Creat Clear Calc 48 Estimated GFR > 60 Glucose 87 Calcium 8.7 Magnesium 2.1 Discharge Plan Discharge Attending physician on discharge: Gricelda Mccurdy Consulting providers: Carlos Montgomery Discharging Clinician: Gricelda Mccurdy Anticipated Discharge Date/Time: 09/26/22 11:18 Patient Disposition: Home, Self-Care Activity: as tolerated Diet: heart healthy Patient Instructions: Antibiotic Form Stand Alone Forms: General Discharge Information Follow-up/Referrals: Carlos Montgomery MD [Physician] - 2 Weeks Indra,Chato Beck MD [Primary Care Provider] - 2 Weeks Discharge Medications: New metoprolol tartrate 25 mg Tablet 25 mg PO Q12HR Qty: 60 1RF Eliquis 5 mg Tablet 5 mg PO Q12HR Qty: 60 1RF spironolactone 25 mg Tablet 25 mg PO QAM Qty: 30 1RF Continued lisinopril 20 mg Tablet 20 mg PO DAILY Other Ambulatory Orders: CA cardiac event monitor (Routine) Timeframe: 1 Month Location: [facility] [place] Ordered By: Lesley Correia Date of admission: 09/23/22 23:42 Primary Care Provider: Indra,Chato Beck Admitting Provider: Cary Campa Attending physician on admission: Cary Campa Condition: Stable [facility] Discharge Billing Hospital Discharge Hospital Discharge: [id number] Hosp D/C >30 Min
== END 2022-09-26 12:50 | disposition home or self-care (01) ==
LOC: ANHED 23:41 → ANHIMU 09-24 01:18
PROVIDERS: Family Medicine; Internal Medicine; Internal Medicine Cardiovascular Disease; Admitting Provider Internal Medicine; Emergency Provider Emergency Medicine; PCP Internal Medicine; Visit Provider Internal Medicine
DX: I47.1 Supraventricular tachycardia (principal); E87.6 Hypokalemia; R77.8 Other specified abnormalities of plasma proteins; I08.2 Rheumatic disorders of both aortic and tricuspid valves; I10 Essential (primary) hypertension; R06.02 Shortness of breath; R55 Syncope and collapse; M85.80 Other specified disorders of bone density and structure, unspecified site; Z20.822 Contact with and (suspected) exposure to COVID-19; E55.9 Vitamin D deficiency, unspecified; I27.20 Pulmonary hypertension, unspecified; R94.31 Abnormal electrocardiogram [ECG] [EKG]; F10.90 Alcohol use, unspecified, uncomplicated; Z87.891 Personal history of nicotine dependence; Z79.899 Other long term (current) drug therapy; Z82.49 Family history of ischemic heart disease and other diseases of the circulatory system
CPT/HCPCS: 36415; 71045; 80048; 80053; 81001; 83735; 83880; 84484; 85025; 85610; 85730; 87086; 87088; 87636; 93005; 93306; 96361; 96365; 96366; 96372; 96374; 96375; 96376; 99285; A9270; G0378; J0153; J1650; J2405; J3480; J7030; J7050